=== PATIENT | male | born 1990 | race Caucasian/White ===

== ENCOUNTER 2017-12-08 08:02 | Emergency (ER) | payer BC, SELFPAY ==
[2017-12-08 08:06] VITALS: BP 128/101; PULSE 85; RESP 16; TEMP 37; O2SAT 98
--- NOTE | 2017-12-08 08:09 | DI.REPORT_ITS ---
SYMPTOM/DIAGNOSIS: PAIN MID FINGER PROX PHALANGE AND DISTAL METACARPAL, CONCERN FOR FX RIGHT HAND: There is fracture involving the proximal phalanx of the middle finger. The fracture extends to involve a small portion of the articular surface at the PIP joint. There is mild displacement of the distal portion of the fracture. A lucency is seen in the proximal portion of the phalanx which is not displaced. IMPRESSION: Fracture of the proximal phalanx of the middle finger.
[2017-12-08] MEDS: Ibuprofen 800 MG TAB PO (08:15)
[2017-12-08 08:32] VITALS: BP 136/88
--- NOTE | 2017-12-08 08:33 | ED.GENADUL ---
Disposition Clinical Impression: Finger fracture, right Disposition: HOME Condition: Good Instructions: Finger Fracture (ED) Additional Instructions: Tylenol and Motrin for pain. Please follow-up with the clinical pharmacy specialist as soon as possible for reassessment. If you notice any worsening of your symptoms, or any new symptoms such as vomiting, diarrhea, fever, chills, shortness of breath, chest pain, numbness, weakness, or fainting , please return immediately to the emergency department for reevaluation. Please follow up with your primary care provider as soon as possible for reassessment and reevaluation. As always, it was a pleasure participating in your medical care today. Prescriptions: Acetaminophen [Tylenol Extra Strength] 1,000 mg PO Q6H 5 Days #60 tab Ibuprofen [Motrin Ib] 600 mg PO Q6H 5 Days #60 tablet Referrals: Blaine Guillen MD [ [facility] STAFF PHYSICIAN] - Forms: Work Release Medical Decision Making - Medical Decision Making This is a 27-year-old male who is right-hand dominant who works at a [employer] and uses his hand regularly who presents today with middle finger pain on his right hand. He was tubing yesterday when the finger got caught and has had notable pain since then. Physical exam demonstrates intact capillary refill, and sensation. X-ray reveals 2 angulated fractures of the middle finger, proximal phalanx, with questionable joint involvement at the distal component. Because of the patient's hand dominance, the nature of the fracture, and his occupation we will call orthopedics for potential outpatient management. This is in the OR doing a procedure, and so the patient was splinted and discharged home with close follow-up. Dr. Guillen was able to call back later, and had no additional recommendations over splinting, but did recommend very close follow-up this week with the patient. I did call the patient back, and discussed the case with him including the importance of close follow-up this week. The patient has the number for the orthopedic office and will be calling them this afternoon to set up that appointment this week. I have extensively reviewed the treatment plan and discharge instructions with the patient and their family. I have addressed all patient concerns at this time. The patient and family was made aware of what symptoms to monitor for that would warrant a return to the emergency department. Discussed the plan with the patient and family, they demonstrate verbal understanding and agreement with our assessment and plan at this time. History of Present Illness - General Chief complaint: Orthopedic Stated complaint: R HAND INJURY Time Seen by Provider: 12/08/17 08:09 - History of Present Illness Initial comments: This is a pleasant 27-year-old male who works at the [employer] who is right-hand dominant who presents here today for evaluation of right hand/middle finger pain. Patient states that yesterday he was tubing on the [place] when he flipped the tube and his middle finger got stuck in the tube and he noticed notable pain. Clearly secondary to the environment in which she was in he was unable to hear any pop or other abnormality. Since then he has been icing his finger but has had notable pain with any movement, and still pain without any significant movement of the middle finger. There is radiation of pain to the central aspect of his hand with movement of the finger, and worsening of the pain with movement of the surrounding fingers as well as the injured finger. There are no relieving factors at this time. He denies any other associated factors. Patient denies any other medical history, prior surgeries, IV or illicit drug use. He does occasionally drink alcohol. He denies any pertinent family history. He has no other complaints at this time. - Related Data Acetaminophen [Tylenol] 2 tab PO PRN PRN 04/17/15 Acetaminophen [Tylenol Extra Strength] 1,000 mg PO Q6H 5 Days #60 tab 12/08/17 Ibuprofen [Motrin Ib] 600 mg PO Q6H 5 Days #60 tablet 12/08/17 Allergies Allergy/AdvReac Type Severity Reaction Status Date / Time Penicillins Allergy Hives Unverified 12/08/17 08:10 Review of Systems Other: 10 point review of systems was performed, pertinent positives and negatives are noted in the history of present illness. Past Medical History - Past Medical History Medical history: no medical history - Social History Alcohol use: rarely Drug use: none General Exam - Other Other exam information: 1.Const: Well-nourished, Well-developed, appearing stated age 2.Eyes: PERRL, no conjunctival injection, and symmetrical lids. 3.ENT: Atraumatic external nose and ears. Moist MM. Neck: Symmetric, trachea midline, No thyromegaly. 4.CVS: +S1/S2, No murmurs or gallops. Peripheral pulses 2+ and equal in all extremities. Brisk capillary refill in all extremities. 5.RESP: Unlabored respiratory effort. Clear to auscultation bilaterally. No wheezes rales or rhonchi 6.GI: Soft, Nontender/Nondistended, No hepatosplenomegaly. No guarding or rebound. 7.MSK: Patient demonstrates notable swelling of the middle finger at the MCP joint. There is bruising on both the anterior and posterior aspect. Pain with movement. He is able to flex and extend the finger with significant pain. Capillary refill is brisk. 2 point discrimination is present, and sensation is intact. No significant pain on palpation of the palmar aspect of the hand, wrist, or other fingers. 8.Skin: Warm, Dry. No rashes or lesions. 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 Sensation grossly intact, no focal neurologic deficits. 10.Psych: (AAO) x3. Appropriate mood and affect Course Vital Signs - 24 hr 12/08/17 12/08/17 08:06 08:32 Temperature 37 C Pulse 85 Respiratory 16 Rate Blood Pressure 128/101 136/88 Pulse Oximetry 98
== END 2017-12-08 10:06 | disposition home or self-care (01) ==
PROVIDERS: Emergency Provider Student in an Organized Health Care Education/Training Program; PCP Internal Medicine
DX: S62.612A Displaced fracture of proximal phalanx of right middle finger, initial encounter for closed fracture (principal); X50.9XXA Other and unspecified overexertion or strenuous movements or postures, initial encounter; Y93.16 Activity, rowing, canoeing, kayaking, rafting and tubing
CPT/HCPCS: 26720; 73130

== ENCOUNTER → 2017-12-16 08:56 | Outpatient (CLI) | payer BC, SELFPAY ==
--- NOTE | 2017-12-16 09:10 | DI.REPORT_ITS ---
SYMPTOM/DIAGNOSIS: F/U PINNING OF RMF RIGHT MIDDLE FINGER: Two views. Comparison is made with 12/10/17. There are again seen two pins transfixing the comminuted fracture of the proximal phalanx of the right middle finger. The orthopedic hardware and fracture components appear stable in alignment. Mild soft tissue swelling is present.
== END ==
PROVIDERS: PCP Internal Medicine; Visit Provider Orthopaedic Surgery
DX: S62.612D Displaced fracture of proximal phalanx of right middle finger, subsequent encounter for fracture with routine healing (principal); X50.9XXD Other and unspecified overexertion or strenuous movements or postures, subsequent encounter; Y93.16 Activity, rowing, canoeing, kayaking, rafting and tubing
CPT/HCPCS: 73140

== ENCOUNTER 2017-12-25 08:41 | Outpatient (CLI) | payer BC, SELFPAY ==
--- NOTE | 2017-12-25 08:45 | DI.RAD_ITS ---
SYMPTOMS/DIAGNOSIS: F/U SURGERY RIGHT MIDDLE FINGER: Comparison is made with [id number]. Two pins are again noted in the proximal phalanx for fracture fixation. There has been no change in fracture alignment.
== END 2017-12-25 09:01 ==
PROVIDERS: PCP Internal Medicine; Visit Provider Orthopaedic Surgery
DX: S62.612D Displaced fracture of proximal phalanx of right middle finger, subsequent encounter for fracture with routine healing (principal)
CPT/HCPCS: 73140

== ENCOUNTER 2018-01-08 13:40 | Outpatient (CLI) | payer BC, SELFPAY ==
--- NOTE | 2018-01-08 14:25 | DI.RAD_ITS ---
SYMPTOMS/DIAGNOSIS: F/U SURGERY EXAMINATION OF THE RIGHT MIDDLE FINGER: Since the prior examination, the fixation pins have been removed. There is some mild diastasis at the fracture line. There is no definite evidence of joint involvement.
== END 2018-01-08 14:00 ==
PROVIDERS: PCP Internal Medicine; Visit Provider Orthopaedic Surgery
DX: S62.612D Displaced fracture of proximal phalanx of right middle finger, subsequent encounter for fracture with routine healing (principal)
CPT/HCPCS: 73140

== ENCOUNTER 2018-01-29 14:59 | Outpatient (CLI) | payer BC, SELFPAY ==
--- NOTE | 2018-01-29 15:04 | DI.RAD_ITS ---
SYMPTOMS/DIAGNOSIS: F/U RT MIDDLE FINGER FRACTURE RIGHT MIDDLE FINGER: Comparison is made with [id number] and [id number]. There has been no change in the fracture alignment when compared with the 20Sept exam. Lucencies related to previous pins are again noted. There has been slight interval healing.
== END 2018-01-29 15:19 ==
PROVIDERS: PCP Internal Medicine; Visit Provider Orthopaedic Surgery
DX: S62.612D Displaced fracture of proximal phalanx of right middle finger, subsequent encounter for fracture with routine healing (principal)
CPT/HCPCS: 73140

== ENCOUNTER 2020-03-24 19:13 | Outpatient (REF) | payer SELFPAY ==
[2020-03-28 10:07] LABS: COVID-19 RT-PCR Result NEGATIVE (Negative)
== END 2020-03-24 19:33 ==
LOC: NCHCN 19:13
PROVIDERS: PCP Internal Medicine; Visit Provider Internal Medicine
DX: Z20.828 Contact with and (suspected) exposure to other viral communicable diseases (principal)
CPT/HCPCS: U0003